=== PATIENT | female | born 1945 | race Caucasian/White ===

== ENCOUNTER 2018-01-01 07:39 | Emergency (ER) | payer MEDICARE ==
[2018-01-01] MEDS ORDERED: KETOROLAC 30 MG/ML INJ ONE (08:18)
--- NOTE | 2018-01-01 08:51 | ER ---
Nurse's Notes [facility] Name: Janet Kirk Age: 72 yrs Sex: Female : 1945 Arrival Date: 01/01/2018 Time: 07:41 Bed 19 Private MD: Diagnosis: Pain in right knee Presentation: 01/01 07:52 Presenting complaint: Patient states: c/o right knee pain that started yesterday em afternoon, denies any trauma, just felt a "pop". Transition of care: patient was not received from another setting of care. Onset of symptoms was November 30, 2017. Care prior to arrival: None. 07:52 Method Of Arrival: Ambulatory em 07:53 Acuity: SINTIA 4 ss Triage Assessment: 07:55 General: Appears in no apparent distress. uncomfortable, Behavior is calm, cooperative. em Pain: Complains of pain in right knee. Historical: - Allergies: 07:55 No Known Allergies; em - Home Meds: 07:55 losartan oral oral [Active]; simvastatin Oral [Active]; em - PMHx: 07:55 Cataracts; left knee replacement; em - PSHx: 07:55 partial hysterectomy; em - Immunization history:: Adult Immunizations up to date. - Social history:: Smoking status: Patient/guardian denies using tobacco. Screenin:09 Abuse screen: Denies threats or abuse. Nutritional screening: No deficits noted. em Tuberculosis screening: No symptoms or risk factors identified. Fall Risk None identified. Assessment: 08:08 General: Appears in no apparent distress. comfortable, Behavior is calm, cooperative. em Pain: Complains of pain in right knee Pain currently is 5 out of 10 on a pain scale. Neuro: Level of Consciousness is awake, alert, obeys commands, Oriented to person, place, time, situation. Cardiovascular: Capillary refill < 3 seconds Patient's skin is warm and dry. Respiratory: Airway is patent Respiratory effort is even, unlabored, Respiratory pattern is regular, symmetrical. GI: Abdomen is flat. : No signs and/or symptoms were reported regarding the genitourinary system. EENT: No signs and/or symptoms were reported regarding the EENT system. Derm: Skin is intact, Skin is pink, warm \\T\\ dry. Musculoskeletal: Range of motion: intact in all extremities, Swelling present in right knee denies trauma, heard a "pop". 08:15 General: The previous assessment is accurate, call light remains within reach. . ss 08:23 Reassessment: Patient appears in no apparent distress at this time. Patient and/or em family updated on plan of care and expected duration. Pain level reassessed. Patient is alert, oriented x 3, equal unlabored respirations, skin warm/dry/pink. Patient states feeling better. 08:55 Reassessment: Patient appears in no apparent distress at this time. Patient and/or em family updated on plan of care and expected duration. Pain level reassessed. Patient is alert, oriented x 3, equal unlabored respirations, skin warm/dry/pink. Patient states feeling better. Vital Signs: 07:55 BP 126 / 75; Pulse 73; Resp 18; Temp 98.1; Pulse Ox 98% on R/A; Weight 66.22 kg; Height em 5 ft. 3 in. (160.02 cm); Pain 5/10; 07:55 Body Mass Index 25.86 (66.22 kg, 160.02 cm) em ED Course: 07:41 Patient arrived in ED. as 07:42 Yareli Manning FNP-C is PHCP. kb 07:43 Tirso Higginbotham MD is Attending Physician. kb 07:51 Zbigniew Ceballos LVN is Primary Nurse. em 07:53 Triage completed. ss 08:09 Patient has correct armband on for positive identification. Bed in low position. Call em light in reach. Side rails up X2. Adult w/ patient. 08:09 No provider procedures requiring assistance completed. Patient did not have IV access em during this emergency room visit. 08:10 Arm band placed on. em 08:34 X-ray completed. Portable x-ray completed in exam room. [email or web address] 08:35 Knee Right 3 View XRAY In Process Unspecified. EDMS 09:03 Michael wrap to right knee. em Administered Medications: 08:03 Drug: TORadol 60 mg Route: IM; Site: right gluteus; em 08:51 Follow up: Response: No adverse reaction; Pain is decreased em Outcome: 08:51 Discharge ordered by MD. kb 09:04 Discharged to home ambulatory. em 09:04 Condition: good 09:04 Discharge instructions given to patient, Instructed on discharge instructions, follow up and referral plans. medication usage, Demonstrated understanding of instructions, follow-up care, medications, Prescriptions given X 1. 09:04 Patient left the ED. em Signatures: Dispatcher [employer] Yareli Carvajal, VEENA BOX-Jose Brian Edgar, RIG SITE ENGINEER RIG SITE ENGINEER Priya Up Shelby, RN RN ss
--- NOTE | 2018-01-01 08:51 | EDPHYS ---
Physician Documentation [facility] Name: Janet Kirk Age: 72 yrs Sex: Female : 1945 Arrival Date: 01/01/2018 Time: 07:41 Bed 19 Private MD: ED Physician Tirso Higginbotham HPI: 01/01 08:26 This 72 yrs old Female presents to ER via Ambulatory with complaints of Knee kb Pain. 08:26 The patient presents with pain, that is acute. The complaints affect the right knee. kb Context: The problem was sustained at home, resulted from an unknown cause, the patient can fully bear weight, the patient is able to ambulate, without difficulty, Problem is a result from a previous injury: No. Onset: The symptoms/episode began/occurred yesterday. Modifying factors: The symptoms are alleviated by nothing. the symptoms are aggravated by straightening knee. Associated signs and symptoms: The patient has no apparent associated signs or symptoms. Treatment prior to arrival includes: no previous treatment. Severity of symptoms: At their worst the symptoms were mild, moderate, in the emergency department the symptoms are unchanged. The patient has not experienced similar symptoms in the past. The patient has not recently seen a physician. Pt states she was riding in the car and felt a popping sensation in right knee. States she may have overworked it the day before that while doing yard work. Denies injury or trauma. . Historical: - Allergies: 07:55 No Known Allergies; em - Home Meds: 07:55 losartan oral oral [Active]; simvastatin Oral [Active]; em - PMHx: 07:55 Cataracts; left knee replacement; em - PSHx: 07:55 partial hysterectomy; em - Immunization history:: Adult Immunizations up to date. - Social history:: Smoking status: Patient/guardian denies using tobacco. ROS: 08:26 Constitutional: Negative for fever, chills, and weight loss, Cardiovascular: Negative kb for chest pain, palpitations, and edema, Respiratory: Negative for shortness of breath, cough, wheezing, and pleuritic chest pain, Abdomen/GI: Negative for abdominal pain, nausea, vomiting, diarrhea, and constipation, Skin: Negative for injury, rash, and discoloration, Neuro: Negative for headache, weakness, numbness, tingling, and seizure. 08:26 MS/extremity: Positive for pain, tenderness, of the right knee. Exam: 08:26 Constitutional: This is a well developed, well nourished patient who is awake, alert, kb and in no acute distress. Head/Face: Normocephalic, atraumatic. Chest/axilla: Normal chest wall appearance and motion. Nontender with no deformity. No lesions are appreciated. Cardiovascular: Regular rate and rhythm with a normal S1 and S2. No gallops, murmurs, or rubs. Normal PMI, no JVD. No pulse deficits. Respiratory: Lungs have equal breath sounds bilaterally, clear to auscultation and percussion. No rales, rhonchi or wheezes noted. No increased work of breathing, no retractions or nasal flaring. Abdomen/GI: Soft, non-tender, with normal bowel sounds. No distension or tympany. No guarding or rebound. No evidence of tenderness throughout. Skin: Warm, dry with normal turgor. Normal color with no rashes, no lesions, and no evidence of cellulitis. MS/ Extremity: Pulses equal, no cyanosis. Neurovascular intact. Full, normal range of motion. Neuro: Awake and alert, GCS 15, oriented to person, place, time, and situation. Cranial nerves II-XII grossly intact. Motor strength 5/5 in all extremities. Sensory grossly intact. Cerebellar exam normal. Normal gait. Vital Signs: 07:55 BP 126 / 75; Pulse 73; Resp 18; Temp 98.1; Pulse Ox 98% on R/A; Weight 66.22 kg; Height em 5 ft. 3 in. (160.02 cm); Pain 5/10; 07:55 Body Mass Index 25.86 (66.22 kg, 160.02 cm) em MDM: 07:46 Patient medically screened. [facility] 08:26 Data reviewed: vital signs, nurses notes. Data interpreted: Pulse oximetry: on room air kb is 98 %. Interpretation: normal. 08:49 Counseling: I had a detailed discussion with the patient and/or guardian regarding: the kb historical points, exam findings, and any diagnostic results supporting the discharge/admit diagnosis, radiology results, the need for outpatient follow up, a orthopedic surgeon, to return to the emergency department if symptoms worsen or persist or if there are any questions or concerns that arise at home. 01/01 07:53 Order name: Knee Right 3 View XRAY kb 01/01 08:50 Order name: Michael Wrap; Complete Time: 09:04 kb Administered Medications: 08:03 Drug: TORadol 60 mg Route: IM; Site: right gluteus; em 08:51 Follow up: Response: No adverse reaction; Pain is decreased em Disposition: 10:34 Co-signature as Attending Physician, Tirso Higginbotham MD I agree with the assessment and michael plan of care. Disposition: 01/01/18 08:51 Discharged to Home. Impression: Pain in right knee. - Condition is Stable. - Discharge Instructions: Knee Pain, [id number]. - Prescriptions for Tramadol 50 mg Oral Tablet - take 1 tablet by ORAL route every 8 hours as needed; 12 tablet. - Medication Reconciliation Form, Thank You Letter, Antibiotic Education, Prescription Opioid Use form. - Follow up: Emergency Department; When: As needed; Reason: Worsening of condition. Follow up: Private Physician; When: 2 - 3 days; Reason: Recheck today's complaints, Continuance of care, Re-evaluation by your physician. Signatures: Dispatcher [employer] Yareli Carvajal, ARMHOLE FELLER HANDSTITCHING MACHINE-C ARMHOLE FELLER HANDSTITCHING MACHINE-Tirso Tracey MD MD cha Munoz, Edgar, AGRICULTURAL SCIENCES PROFESSOR AGRICULTURAL SCIENCES PROFESSOR em
[2018-01-01 09:09] VITALS: BP 126/75; TEMP 98.1; O2SAT 98
--- NOTE | 2018-01-01 09:25 | RAD REPORT ---
EXAM DESCRIPTION: RAD - Knee Right 3 View - 01/01/2018 8:35 am CLINICAL HISTORY: Knee pain and swelling. COMPARISON: None. FINDINGS: Mild medial compartment space narrowing is seen. No acute fracture or dislocation. No supr apatellar joint effusion. No worrisome or aggressive bone lesion. IMPRESSION: Mild medial compartment arthritic changes.
== END 2018-01-01 09:04 | disposition home or self-care (01) ==
LOC: ER 07:39
DX: M25.561 Pain in right knee (principal); X58.XXXA Exposure to other specified factors, initial encounter; Y93.H2 Activity, gardening and landscaping; Y92.007 Garden or yard of unspecified non-institutional (private) residence as the place of occurrence of the external cause
CPT/HCPCS: 96372; 99284

== ENCOUNTER 2018-11-30 06:24 | Day surgery (SDC) | payer MEDICARE ==
[2018-11-30] MEDS ORDERED: Ringers Lactate 1,000 ML IV ONE (06:39)
[2018-11-30] MEDS ORDERED: CEFAZOLIN 2GM (PREMIX IV) 2 GM/50 ML BAG ONE (06:39)
[2018-11-30] MEDS ORDERED: LIDOCAINE 1% MPF 5 ML VIAL ONE (06:43)
[2018-11-30] MEDS ORDERED: NS 0.9% VIAL 0 ML ONE (07:08)
[2018-11-30] MEDS ORDERED: NA CHLORIDE 0.9% 1,000 ML ONE (07:08)
[2018-11-30] MEDS ORDERED: BOTU TOX TYPE A 100 UNIT/VIAL ID ONE (07:20)
[2018-11-30] MEDS ORDERED: MIDAZOLAM HCL 2 MG/2 ML INJ ONE (07:22)
[2018-11-30] MEDS ORDERED: PROPOFOL 200 MG/20 ML VIAL IV ONE (07:22)
[2018-11-30] MEDS ORDERED: FENTANYL CITR 100 MCG/2 ML ONE (07:22)
[2018-11-30] MEDS ORDERED: LIDOCAINE 2% MPF 5 ML VIAL ONE (07:22)
[2018-11-30] MEDS ORDERED: LIDOCAINE 1.5% W/EPI AMP 5 ML ONE (07:30)
[2018-11-30 10:09] VITALS: TEMP 98.2
[2018-11-30 10:36] VITALS: BP 123/63; O2SAT 100
== END 2018-11-30 10:00 | disposition home or self-care (01) ==
LOC: OR 06:24
PROVIDERS: ATTEND Obstetrics & Gynecology
PROC: 0TVD8ZZ Restriction of Urethra, Via Natural or Artificial Opening Endoscopic (ICD-10-PCS; principal; 2018-11-30 07:30)
DX: N39.3 Stress incontinence (female) (male) (principal); N95.2 Postmenopausal atrophic vaginitis; I10 Essential (primary) hypertension; E78.00 Pure hypercholesterolemia, unspecified; E07.9 Disorder of thyroid, unspecified; Z79.82 Long term (current) use of aspirin; Z85.828 Personal history of other malignant neoplasm of skin; Z83.3 Family history of diabetes mellitus; Z80.0 Family history of malignant neoplasm of digestive organs
CPT/HCPCS: 51715; J2704; J2250; J3010; J0690; J7030; L8603; J0585; J2001